=== PATIENT | female | born 2000 | race African-American/Black ===

== ENCOUNTER 2025-01-23 23:26 | Inpatient (IN) ==
[2025-01-23 23:52] VITALS: BMI 31.9
[2025-01-23 23:56] LABS: AMNISURE ROM TEST THERE IS A RUPTURE (NO RUPTURE)
[2025-01-24] MEDS ORDERED: ZOFRAN INJ 4 MG VIAL IVP PRN (00:53)
[2025-01-24] MEDS ORDERED: NUBAIN INJ 20 MG AMP IVP PRN (00:53)
[2025-01-24] MEDS ORDERED: REGLAN INJ 10 MG VIAL IVP PRN (00:53)
[2025-01-24] MEDS ORDERED: BETADINE SOLN ONE (01:04)
[2025-01-24] MEDS: D5 1/2 NS 1,000 ML 1,000 ML IV SCH (01:09)
[2025-01-24 01:10] LABS: BASOPHILS # (AUTO) 0.1 X10^3/uL (0.0-0.1); BASOPHILS % (AUTO) 0.6 % (0.2-1.0); EOSINOPHILS # (AUTO) 0.1 x10^3/uL (0.0-0.2); EOSINOPHILS % (AUTO) 1.2 % (0.9-2.9); HEMATOCRIT 34.4 % (36.0-47.0); HEMOGLOBIN 11.4 g/dL (12.0-16.0); LYMPHOCYTES # (AUTO) 2.1 X10^3/uL (1.3-2.9); MEAN CORPUSCULAR HEMOGLOBIN 27.2 pg (27.0-34.0); MEAN CORPUSCULAR VOLUME 82.3 fL (80.0-100.0); MEAN PLATELET VOLUME 9.3 fL (7.4-11.0); MONOCYTES # (AUTO) 1.2 x10^3/uL (0.3-0.8); MONOCYTES % (AUTO) 13.9 % (0.0-13.0); NEUTROPHILS % (AUTO) 59.3 % (42.0-75.0); PLATELET COUNT 211 X10^3/uL (150.0-450.0); RED BLOOD COUNT 4.18 X10^6/uL (3.5-5.4); RED CELL DISTRIBUTION WIDTH 15.8 % (11.6-16.5); WHITE BLOOD COUNT 8.4 X10^3/uL (3.6-10.0)
[2025-01-24] MEDS: LR 1,000 ML IV 1,000 ML IV ONE ×2 (01:17→01:45)
[2025-01-24 01:19] LABS: ALANINE AMINOTRANSFERASE 15 Units/L (12-78); ALBUMIN 2.7 g/dL (3.4-5.0); ALKALINE PHOSPHATASE 153 Units/L (46-116); ASPARTATE AMINO TRANSFERASE 19 Units/L (15-37); BLOOD UREA NITROGEN 4 mg/dL (7-18); CALCIUM 8.8 mg/dL (8.5-10.1); CARBON DIOXIDE 23.4 mmol/L (21-32); CHLORIDE 102 mmol/L (98-107); COR CA(FOR HYPOALB) 9.8 mg/dL (8.5-10.1); CREATININE 0.47 mg/dL (0.55-1.02); GLUCOSE 107 mg/dL (65-99); POTASSIUM 4.2 mmol/L (3.5-5.1); SODIUM 135 mmol/L (136-145); eGFR NON BLACK RACES > 60 (>60)
[2025-01-24] MEDS: D5 1/2 NS 1,000 ML 1,000 ML IV ONE (01:45)
[2025-01-24] MEDS: OXYTOCIN 20 UNIT/1,000 ML-NS 20 UNIT/1,000 ML PLAST..BAG IV PRN (02:10)
[2025-01-24] MEDS: FENTANYL VIAL INJ 100 mcg ONE (02:46)
[2025-01-24] MEDS: NAROPIN EPIDURAL 0.2% 100 ML ONE (02:49)
[2025-01-24] MEDS: PITOCIN ONE (03:12)
[2025-01-24] MEDS: PITOCIN IVP ONE (07:12)
[2025-01-24] MEDS ORDERED: MOTRIN TAB 800 MG PO PRN ×2 (07:54)
[2025-01-24] MEDS ORDERED: DERMOPLAST PAIN RELIEF SPRAY TOP PRN (07:54)
[2025-01-24] MEDS ORDERED: MILK OF MAGNESIA PO PRN (07:54)
[2025-01-24] MEDS: OXYTOCIN 20 UNIT/1,000 ML-NS 20 UNIT/1,000 ML PLAST..BAG IV SCH (10:23)
[2025-01-24] MEDS: PRENATAL PLUS PO SCH (10:49)
[2025-01-25 13:00] VITALS: BP 132/88; PULSE 94; RESP 17; TEMP 98.3; O2SAT 100
== END 2025-01-25 13:40 | disposition home or self-care (01) | DRG 807 ==
LOC: ER 23:26 → LD 01-24 00:53 → MED/SURG 01-24 09:15
PROVIDERS: ADMIT Obstetrics & Gynecology Obstetrics; ATTEND Obstetrics & Gynecology Obstetrics
DX: Z3A.38 38 weeks gestation of pregnancy; O47.1 False labor at or after 37 completed weeks of gestation; Z37.0 Single live birth; O26.893 Other specified pregnancy related conditions, third trimester